=== PATIENT | male | born 1965 | race Caucasian/White ===

== ENCOUNTER 2017-03-17 08:13 | Day surgery (SDC) | payer MEDICARE ==
[~2017-03-17] VITALS: Ht 177.8 cm; Wt 111.1 kg
[~2017-03-17 08:13] MED LIST: AMIT75TA2 PO; DIME240C2 PO; GABA600T2 PO; LORA2TAB PO; NATA300V IV; RES30 PO; SIMV20TA4 PO; Sodium Chloride LOK Flush 10 mL Syringe IV PRN; fentaNYL-PF 50 mCg/mL 2 mL Inj IVPUSH PRN
[2017-03-17 08:41] VITALS: BP 129/79; PULSE 43; O2SAT 97
[2017-03-17] MEDS: 0.9% Sodium Chloride 1,000 ML IV SCH ×2 (09:28→09:32)
[2017-03-17 09:45] VITALS: BP 134/69; PULSE 82; RESP 18; O2SAT 97
[2017-03-17 10:00] VITALS: BP 128/67; PULSE 66; RESP 15; O2SAT 98
--- NOTE | 2017-03-17 10:49 | ENDO ---
[address] [address] ENDOSCOPY PROCEDURE PATIENT: JESIKA HANSON : 1965 MR#: [id number] ADMIT: 03/17/2017 JOB ID: [id number] DATE: 03/17/2017 PROCEDURE: Colonoscopy INDICATION: History of colon polyps. Patient's ASA classification is two. Mallampati score is two. MEDICATIONS: 1. Versed 1 mg. 2. Fentanyl mcg. INSTRUMENT USED: PCF-H180AL PREP QUALITY: Fair. PROCEDURE DETAILS: After informed consent was obtained, the patient was brought into the GI suite, where he was placed on oxygen via nasal cannula and monitored with continuous pulse oximeter, telemetry, and blood pressure monitoring. A time-out was performed. Then, he was placed in a left lateral decubitus position and medications were administered for sedation. Digital rectal exam was performed, which was unremarkable. The colonoscope was then inserted into the rectum and advanced under direct visualization to the cecum, which was identified by the presence of the ileocecal valve and appendiceal orifice. Once the cecum was reached, the colonoscope was withdrawn back to the rectum. Mucosa and lumen were examined. In the rectum, retroflexion was performed. Following retroflexion, the remaining air in the rectum was suctioned and the procedure was completed. FINDINGS: 1. In the transverse colon, there was a diminutive polyp which was removed with cold biopsy forceps. 2. In the rectum, there was a flat polyp that measured approximately 4 mm. The polyp had the appearance consistent with serrated adenoma. Polyp was removed with cold biopsy forceps. The remainder of the colon exam was otherwise unremarkable. IMPRESSION: 1. Transverse colon polyp. 2. Rectal polyp. RECOMMENDATIONS: 1. Repeat colonoscopy in five years. 2. Patient had what appeared to be bigeminy heart rhythm and therefore I recommend he follow up with his primary care provider for further evaluation. COMPLICATIONS: None. ESTIMATED BLOOD LOSS: Less than 5 mL.
--- NOTE | 2017-03-18 14:53 | PATH ---
SURGICAL PATHOLOGY Attending Physician:Steve Cazares CASE STATUS: Signed Out PATIENT NAME: JESIKA HANSON PID: [id number] : 1965 DATE COLLECTED:03/17/2017 16:00 SPECIMEN: 1: Colon, Polyp 2: Rectum, Biopsy CLINICAL HISTORY: 1. TRANSVERSE COLON POLYP 2. RECTAL POLYP FINAL DIAGNOSIS: 1.TRANSVERSE COLON POLYP BIOPSY: TUBULAR ADENOMA INVOLVING SINGLE BIOPSY FRAGMENT. 2.RECTAL POLYP BIOPSY: HYPERPLASTIC POLYP INVOLVING BOTH BIOPSY FRAGMENTS. ICD10 D12.3 GROSS DESCRIPTION: Received in formalin, labeled with the patient' s name and "transverse polyp", are two fragments of [place], soft tissue ranging in size from 0.1 x 0.1 x 0.1 cm to 0.2 x 0.1 x 0.1 cm. All fragments are totally submitted in cassette 1A. Received in formalin, labeled with the patient' s name and "rectal polyp", are two fragments of [place], soft tissue ranging in size from 0.1 x 0.1 x 0.1 cm to 0.2 x 0.1 x 0.1 cm. All fragments are totally submitted in cassette 2A. ([id number]) MICRO DESCRIPTION: See diagnosis. ICD-9 CODES: CPT CODES: 1: 94010 2: 71416 Electronically Signed Out Abelino Shaver MD [facility] [address], [place] [address] Technical component performed at [facility], [facility] [address], [address]
== END 2017-03-17 23:59 | disposition home or self-care (01) ==
LOC: END 08:13
PROVIDERS: ATTEND Internal Medicine Gastroenterology
DX: Z12.11 Encounter for screening for malignant neoplasm of colon (principal); D12.3 Benign neoplasm of transverse colon; K62.1 Rectal polyp; Z86.010 Personal history of colon polyps; I31.3 Pericardial effusion (noninflammatory); I49.3 Ventricular premature depolarization
CPT/HCPCS: 45380; G0500; J7030